=== PATIENT | female | born 1945 | race Hispanic/Latino ===

== ENCOUNTER 2018-08-26 17:51 | Inpatient (IN) | payer MEDICARE, BC ==
[2018-08-26 17:56] VITALS: BMI 26.5
--- NOTE | 2018-08-26 18:36 | CT ---
Date of service: 08/26/2018 PROCEDURE: CT HEAD WITHOUT CONTRAST. HISTORY: Code Stroke COMPARISON: None available. TECHNIQUE: Axial computed tomography images were obtained through the head/brain without intravenous contrast. Radiation dose: Total exam DLP = 919.58 mGy-cm. This CT exam was performed using one or more of the following dose reduction techniques: Automated exposure control, adjustment of the mA and/or kV according to patient size, and/or use of iterative reconstruction technique. FINDINGS: HEMORRHAGE: No acute parenchymal, subarachnoid or extra-axial hemorrhage. BRAIN: Moderate diffuse/confluent chronic white matter ischemic changes seen extending peripherally into the deep and subcortical white matter both cerebral hemispheres. Note that the possibility of a small hyperacute infarct cannot be completely excluded. Clinical correlation recommended.. There is ectasia of the vertebral and basilar arteries most pronounced at the level of the terminal and of the basilar artery which is somewhat bulbous in appearance. Additionally, similar ectatic appearance of the cavernous and supraclinoid carotid arteries as well as the proximal M1 segments again most pronounced at the bifurcation points. Moderate generalized volume loss. VENTRICLES: No obstructive hydrocephalus. CALVARIUM: No acute calvarial fractures. PARANASAL SINUSES: Unremarkable as visualized. No significant inflammatory changes. MASTOID AIR CELLS: Unremarkable as visualized. No inflammatory changes. OTHER FINDINGS: None. IMPRESSION: No acute intracranial hemorrhage. Chronic white matter and basal nuclei ischemic changes. 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 Note these findings were discussed with Dr. Padilla at approximately 6:28 p.m. with written down and read back verification.
[2018-08-26] MEDS: Sodium Chloride 0.9% 1,000 ML IV SCH (18:38)
[2018-08-26 18:47] LABS: BASO # 0.02 K/mm3 (0.0-2.0); BASO % 0.2 % (0.0-3.0); EOS # 0.2 (0.0-0.7); EOS % 2.3 % (1.5-5.0); HEMOGLOBIN 14.4 g/dL (12.0-16.0); LYMPH # 1.7 (1.2-3.4); LYMPH % 19.1 % (22.0-35.0); MEAN CELL VOLUME 84.5 fl (80.0-105.0); MEAN CORPUSCULAR HEMOGLOBIN 28.3 pg (25.0-35.0); MEAN CORPUSCULAR HGB CONC 33.5 g/dl (31.0-37.0); MONO # 0.5 (0.1-0.6); MONO % 5.7 % (1.0-6.0); RBC 5.09 10^6/uL (3.5-6.1); RED CELL DISTRIBUTION WIDTH 12.9 % (11.5-14.5); WHITE BLOOD COUNT 9.1 10^3/uL (4.5-11.0)
[2018-08-26 18:56] LABS: INR 1.07; PARTIAL THROMBOPLASTIN TIME 35.5 Seconds (26.9-38.3); PROTHROMBIN TIME 11.9 SECONDS (9.4-12.5)
[2018-08-26 19:00] LABS: ALB/GLOB RATIO 1.3 (1.1-1.8); ALBUMIN 4.4 g/dL (3.0-4.8); ALT/SGPT 57 U/L (7-56); AST/SGOT 34 U/L (14-36); BLOOD UREA NITROGEN 14 mg/dL (7-21); GFR NON-AFRICAN AMERICAN > 60; HDL CHOLESTEROL 51 mg/dL (29-60)
--- NOTE | 2018-08-26 19:03 | ED PDOC ---
Arrival/HPI - General Chief Complaint: High Blood Pressure Time Seen by Provider: 08/26/18 17:59 Historian: Patient, Family ( and daughter helped provide information) - History of Present Illness Narrative History of Present Illness (Text): 08/26/18 18:08 73 year old female, whose past medical history includes hypertension, partial hysterectomy, and UTI's, nkda, who was brought into the Emergency department by for disorientation since noon and high blood pressure. reports patient told him that she was not feeling good and was feeling lightheaded while heading home from volunteering earlier today. states the last time patient was normal was around 13:00 today, but started acting differently after that and was not able to answer which year it was or who the president was correctly. Patient was able to answer both questions correctly while in the Emergency department. Patient was not able to correctly answer her age or the month, noting that she cannot think properly and that she gets nervous whenever she is in the hospital. states he saw patient standing still and shaking while standing in kitchen. states he asked patient if she knew what she was doing and patient answered she did not know and also did not realize she made a sandwich while in kitchen. Patient states she is unsure if she took her medication for hypertension this afternoon, but states that patient did take it this afternoon. states patient took her Zostavax shot today. states patient's blood pressure is usually not this high, noting it is usually around 130. states patient last saw Dr. Reina last week. Patient denies any confusion, fever, chills, chest pain, shortness of breath, nausea, vomiting, diarrhea, urinary symptoms, back pain, neck pain, headache, di zziness, or any other complaints. PMD: DR. [employer] Lab Manager: Dr. Reina Time/Duration: Other (Pt notes onset as around 13:00 today ) Symptom Onset: Sudden Symptom Course: Unchanged Activities at Onset: Light Past Medical History - Provider Review Nursing Documentation Reviewed: Yes - Cardiac Hx Hypertension: Yes - Psychiatric Hx Substance Use: No - Anesthesia Hx Anesthesia: No Hx Anesthesia Reactions: No Hx Malignant Hyperthermia: No Family/Social History - Physician Review Nursing Documentation Reviewed: Yes Family/Social History: No Known Family HX Smoking Status: Never Smoked Hx Alcohol Use: No Hx Substance Use: No Allergies/Home Meds Allergies/Adverse Reactions: Allergies No Known Allergies Allergy (Verified 08/26/18 18:04) Review of Systems - Physician Review All systems were reviewed & negative as marked: Yes - Review of Systems Constitutional: Normal. absent: Fevers, Night Sweats Respiratory: Normal. absent: SOB Cardiovascular: Normal. absent: Chest Pain Gastrointestinal: Normal. absent: Abdominal Pain, Diarrhea, Nausea, Vomiting Musculoskeletal: absent: Back Pain, Neck Pain Neurological: Other ( notes patient has been disoriented since around 13:00 today. Pt noted lightheadedness earlier today. ). absent: Normal, Headache, Dizziness Physical Exam - Physical Exam Narrative Physical Exam (Text): Constitutional: No acute distress. Head: Normocephalic. Atraumatic. Eyes: PERRL. ENT: Moist mucous membranes. Neck: Supple. Cardiovascular: Regular rate. Chest: No tenderness. Respiratory: Clear to auscultation bilaterally. GI: Soft. Nontender. Nondistended. Back: No CVA tenderness. Musculoskeletal: No tenderness or swelling of extremities. Skin: No rash. Neurologic: Alert, no focal deficit. CN II to XII intact. Motor 5/5 x 4. Sensation to light touch intact. Vital Signs Reviewed: Yes Vital Signs Temp Pulse Resp BP Pulse Ox 08/26/18 17:56 98.1 F 84 18 186/98 H 96 Temperature: Afebrile Blood Pressure: Hypertensive Pulse: Regular Respiratory Rate: Normal Appearance: Positive for: Well-Appearing, Non-Toxic, Comfortable Pain Distress: None Mental Status: No: Alert and Oriented X 3 (Patient is alert and oriented x2 ) Medical Decision Making ED Course and Treatment: 08/26/18 18:08 Impression: 73 year old female who was brought into the Emergency department by for disorientation since noon and high blood pressure. Differential Diagnosis included but are not limited to: Plan: -- Labs -- CT of head w/o -- EKG -- X-Ray of chest -- Aspirin -- IV fluids -- Zofran -- Urine culture -- Urinalysis -- Reassess and disposition Progress Notes: EKG: Ordered, reviewed, and independently interpreted the EKG. Rate : 80 BPM Rhythm : NSR Interpretation : No ST-segment elevations or depressions, no T-wave inversions, normal intervals. CT Head no acute hemorrhage. Dr. Funk consulted, states will obtain MRI tomorrow. Dr. Lott accepts patient to her service. - Lab Interpretations Lab Results: PT 11.9 SECONDS (9.4-12.5) 08/26/18 18:41 INR 1.07 08/26/18 18:41 APTT 35.5 Seconds (26.9-38.3) 08/26/18 18:41 - RAD Interpretation Radiology Orders: 08/26/18 18:12 HEAD W/O (CODE STROKE) [CT] Stat CHEST PORTABLE [RAD] Stat - Medication Orders Current Medication Orders: Sodium Chloride (Sodium Chloride 0.9%) 1,000 mls @ 100 mls/hr IV .Q10H DRAGAN Last Admin: 08/26/18 18:38 Dose: 100 mls/hr eMAR Start Stop Document 08/26/18 18:38 ROCHELLE (Rec: 08/26/18 18:38 [facility] [id number]) Intravenous Solution Start Date 08/26/18 Start Time 18:38 Discontinued Medications Aspirin (Aspirin) 325 mg PO STAT STA Stop: 08/26/18 18:50 Ondansetron HCl (Zofran Inj) 4 mg IVP STAT STA Stop: 08/26/18 18:38 Last Admin: 08/26/18 18:40 Dose: 4 mg IVP Administration Document 08/26/18 18:40 ROCHELLE (Rec: 08/26/18 18:40 ROCHELLE [id number]) Charges for Administration # of IVP Administrations 1 NIHSS Scale ([place]) Time Performed: 18:00 - How Severe is the Stoke Baseline Level of Consciousness: 0=Alert LOC to Questions: 2=Neither correct LOC to commands: 0=Obeys both correctly Best Gaze: 0=Normal Visual: 0=No visual loss Facial: 0=Normal Motor Arm - Left: 0=No drift Motor Arm - Right: 0=No drift Motor Leg - Left: 0=No drift Motor Leg - Right: 0=No drift Limb Ataxia: 0=Absent Sensory: 0=Normal Best Language: 0=No aphasia Dysarthia: 0=Normal articulation Extinction & Inattention (Neglect): 0=Normal, no object Score: 2 Risk Level: Minor Stroke Risk rTPA Inclusion/Exclusion - Refusal of Treatment Patient Refused Treatment: No - Inclusion Criteria for Altepase Patient is 18 years or Older: Yes The Clinical Diagnosis of Ischemic Stroke That is Causing a Potentially Disabling Neurological Deficit: Yes Time of Onset is Well Established to be Less Than 270 Minute Before Treatment Would Begin: No Risk/Benefit Discussed With Patient/Family Member Present: Yes - Scribe Statement The provider has reviewed the documentation as recorded by the Scribe Michelle Quinones All medical record entries made by the Artemioibthierno were at my direction and personally dictated by me. I have reviewed the chart and agree that the record accurately reflects my personal performance of the history, physical exam, medical decision making, and the department course for this patient. I have also personally directed, reviewed, and agree with the discharge instructions and disposition. Disposition/Present on Arrival - Present on Arrival Any Indicators Present on Arrival: No History of DVT/PE: No History of Uncontrolled Diabetes: No Urinary Catheter: No History of Decub. Ulcer: No History Surgical Site Infection Following: None - Disposition Have Diagnosis and Disposition been Completed?: Yes Diagnosis: Altered mental status, UTI (urinary tract infection) Disposition: HOSPITALIZED Disposition Time: 20:45 Patient Plan: Admission, Telemetry Patient Problems: Current Active Problems Problem Status Onset Altered mental status Acute UTI (urinary tract infection) Acute Condition: GUARDED Forms: [facility] (Belgian)
[2018-08-26 19:11] LABS: LDL CHOLESTEROL 117 mg/dL (0-129); TROPONIN I < 0.01 ng/mL
[2018-08-26 20:23] LABS: URINE BILIRUBIN NEGATIVE (NEGATIVE); URINE BLOOD TRACE-INTACT (NEGATIVE); URINE GLUCOSE (UA) NEGATIVE (NEGATIVE); URINE LEUKOCYTE ESTERASE SMALL Leu/uL (NEGATIVE); URINE PROTEIN 30 mg/dL (<30 mg/dL); URINE UROBILINOGEN 0.2 E.U./dL (<1 E.U./dL)
[2018-08-26 20:27] LABS: URINE APPEARANCE SL CLOUDY (CLEAR); URINE COLOR YELLOW (YELLOW)
[2018-08-26 20:34] LABS: URINE BACTERIA MOD /hpf; URINE WBC 20 - 25 /hpf (0-6)
[2018-08-26] MEDS ORDERED: Ciprofloxacin 400mg/200ml D5W 400 MG/200 ML BAG IVPB STA (20:40)
--- NOTE | 2018-08-27 00:29 | HP ---
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 She states she was doing well up until afternoon when she came back from work. She was working in kitchen, but he noticed that she seems to be confused and disoriented. who was accompanying was asking that what she was doing, she stated I do not know; she does not recall that. She took her medication today. The patient does admit that she took Zostavax vaccination early this morning. No history of fever or chills. No history of nausea or vomiting. No history of fall. No trauma. No recent travel abroad. OTHER PAST MEDICAL HISTORY: Significant for: 1. Hypertension. 2. Hyperlipidemia. 3. History of partial hysterectomy. ALLERGIES: SHE IS NOT ALLERGIC TO ANY MEDICATIONS. MEDICATIONS AT HOME: She takes some blood pressure medication, cannot recall the name. SOCIAL HISTORY: She is , lives with her . Denies smoking, drinking, or alcohol use. PHYSICAL EXAMINATION: GENERAL: The patient is awake, alert, oriented, able to communicate, but somewhat confused. VITAL SIGNS: She is afebrile, pulse 84, respirations 18, blood pressure 186/98. LUNGS: Bilateral fair airflow. No rhonchi or crackle. HEART: S1 and S2 audible. ABDOMEN: Soft, nontender. No rebound. No guarding. NEUROLOGICAL: The patient is awake, alert, oriented, able to communicate, but somewhat forgetful, able to answer simple questions. LABORATORY EXAMINATION: WBC is 9.1, hemoglobin 14, hematocrit 43, platelets 276. PT 11.9, INR 1.07. Chemistry: Sodium 141, potassium 3.8, chloride 99, CO2 of 34, BUN 14, creatinine 0.6, blood sugar 122. LFTs are within normal limits. Urine shows 5-9 rbc's, wbc's 20-25. CT scan of the head was done that is unremarkable. X-ray chest is negative for pneumonia. ASSESSMENT: 1. Altered mental status. 2. Urinary tract infection and pyuria. 3. Uncontrolled hypertension. PLAN: The patient will be placed in observation. We will monitor her blood pressure. We will start her on losartan, start her on IV Rocephin until the cultures are back. Order for carotid Doppler. Request for physical therapy evaluation. Neuro eval has been requested. Rhett Lott MD
[2018-08-27 01:52] VITALS: O2SAT 95
[2018-08-27 07:54] LABS: ALB/GLOB RATIO 1.3 (1.1-1.8); ALBUMIN 3.8 g/dL (3.0-4.8); ALT/SGPT 44 U/L (7-56); AST/SGOT 28 U/L (14-36); BLOOD UREA NITROGEN 13 mg/dL (7-21); GFR NON-AFRICAN AMERICAN > 60
[2018-08-27 08:07] LABS: FREE T4 1.47 ng/dL (0.78-2.19)
--- NOTE | 2018-08-27 08:38 | RAD ---
Date of service: 08/26/2018 HISTORY: Code Stroke COMPARISON: No prior. FINDINGS: LUNGS: No active pulmonary disease. PLEURA: No significant pleural effusion identified, no pneumothorax apparent. CARDIOVASCULAR: No aortic atherosclerotic calcification present. Normal cardiac size. No pulmonary vascular congestion. OSSEOUS STRUCTURES: No significant abnormalities. VISUALIZED UPPER ABDOMEN: Normal. OTHER FINDINGS: None. IMPRESSION: No active disease.
[2018-08-27] MEDS ORDERED: cefTRIAXone 1 gm 1 GM/100 ML BAG IVPB SCH (10:00)
--- NOTE | 2018-08-27 11:25 | CARD ---
APPROVED REPORT Date of service: 08/26/2018 EKG Measurement Heart [id number] ID [id number] <Conclusion> Sinus rhythm with 1st degree AV block Otherwise normal ECG
--- NOTE | 2018-08-27 13:25 | CP.PCM.CON ---
<Julianne Choe - Last Filed: 08/27/18 13:52> History of Present Illness - History of Present Illness History of Present Illness: Neurology consult for Dr. Funk's service Consulted by Dr. Padilla 73 yo female with PMH of hypertension, partial hysterectomy, and UTI's, presented for disorientation and confusion. 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 He reports she was not able to answer questions correctly and forgot what she was doing previously. and daughter states that she had episodes of fixed gaze. Patient states that she did not recall anything abnormal occurring yesterday. Patient reports that she gets nervous whenever she is in the hospital. Per family and patient her blood pressure is usually controlled and around 130, however in the EMS is was 224. Morris aguilar denies any confusion, fever, chills, chest pain, shortness of breath, nausea, vomiting, diarrhea, urinary symptoms, back pain, neck pain, headache, dizziness, or any other complaints. 12 point ROS is negative except as stated. PMH: hypertension, HLD, and UTI's PSH: partial hysterectomy, thyroid ablation social history: Denies smoking, alcohol use, illicit drug use, lives with family history: cardiac disease, father past from brain aneusym allergy: NKDA Review of Systems - Review of Systems All systems: reviewed and no additional remarkable complaints except Past Patient History - Past Social History Smoking Status: Never Smoked - CARDIAC Hx Cardiac Disorders: Yes Hx Hypertension: Yes - PULMONARY Hx Respiratory Disorders: No - NEUROLOGICAL Hx Neurological Disorder: No - HEENT Hx HEENT Problems: No - RENAL Hx Chronic Kidney Disease: No - ENDOCRINE/METABOLIC Hx Endocrine Disorders: Yes (Thyroid Ablation 04/2018) Other/Comment: Thyroid Ablation 04/2018 - HEMATOLOGICAL/ONCOLOGICAL Hx Blood Disorders: No - INTEGUMENTARY Hx Dermatological Problems: No - MUSCULOSKELETAL/RHEUMATOLOGICAL Hx Musculoskeletal Disorders: No Hx Falls: No - GASTROINTESTINAL Hx Gastrointestinal Disorders: No - GENITOURINARY/GYNECOLOGICAL Hx Genitourinary Disorders: Yes Hx Urinary Tract Infection: Yes (Recurrent) - PSYCHIATRIC Hx Psychophysiologic Disorder: Yes Hx Anxiety: Yes Hx Substance Use: No - SURGICAL HISTORY Hx Surgeries: Yes Hx Hysterectomy: Yes (Partial) - ANESTHESIA Hx Anesthesia: No Hx Anesthesia Reactions: No Hx Malignant Hyperthermia: No Meds Allergies/Adverse Reactions: Allergies Allergy/AdvReac Type Severity Reaction Status Date / Time No Known Allergies Allergy Verified 08/26/18 18:04 - Medications Medications: Current Medications Acetaminophen (Tylenol 325mg Tab) 650 mg PO Q4H PRN PRN Reason: Headache Last Admin: 08/27/18 10:59 Dose: 650 mg Aspirin (Ecotrin) 81 mg PO DAILY [facility] Last Admin: 08/27/18 09:34 Dose: 81 mg Atorvastatin Calcium (Lipitor) 10 mg PO DIN DRAGAN Clonidine HCl (Catapres) 0.1 mg PO TID PRN PRN Reason: sbp>150 Sodium Chloride (Sodium Chloride 0.9%) 1,000 mls @ 100 mls/hr IV .Q10H [facility] Last Admin: 08/26/18 18:38 Dose: 100 mls/hr Ceftriaxone Sodium (Rocephin 1 Gram Ivpb) 1 gm in 100 mls @ 100 mls/hr IVPB DAILY [facility]; Protocol Last Admin: 08/27/18 09:34 Dose: 100 mls/hr Potassium Chloride (Potassium Chloride 10 Meq/100 Ml) 10 meq in 100 mls @ 50 mls/hr IVPB Q2H DRAGAN Stop: 08/27/18 13:44 Last Admin: 08/27/18 12:43 Dose: 50 mls/hr Lorazepam (Ativan) 1 mg IVP ONCE PRN; Protocol PRN Reason: Anxiety Losartan Potassium (Cozaar) 100 mg PO DAILY [facility] Last Admin: 08/27/18 09:34 Dose: 100 mg Physical Exam - Constitutional Appears: Well, No Acute Distress - Head Exam Head Exam: ATRAUMATIC, NORMAL INSPECTION, NORMOCEPHALIC - Eye Exam Eye Exam: EOMI, Normal appearance, PERRL Pupil Exam: NORMAL ACCOMODATION, PERRL - Respiratory Exam Respiratory Exam: NORMAL BREATHING PATTERN. absent: Respiratory Distress - Extremities Exam Extremities exam: Positive for: normal inspection. Negative for: tenderness - Expanded Neurological Exam Expanded Neurological exam: Inattentive (mild) Patient oriented to: person, place, time Cranial nerves: EOM's Intact: Normal, Facial Palsey w/Forehead Movement: Normal, Facial Palsey w/o Forehead Movement: Normal, Facial Sensation: Normal, Gag R eflex: Normal, Nystagmus: Normal, Tongue Deviation: Normal Cerebellar Function: Finger to Nose: Normal Upper motor neuron: Pronator Drift: Normal Neuro motor strength exam: Left Upper Extremity: 5, Right Upper Extremity: 5, L eft Lower Extremity: 5, Right Lower Extremity: 5 Coma Scale Eye Opening: SPONTANEOUS Coma Scale Motor Response: OBEYS COMMANDS - Psychiatric Exam Psychiatric exam: Anxious, Normal Affect Results - Vital Signs Recent Vital Signs: Last Vital Signs Temp 97.1 F L 08/27/18 12:00 Pulse 75 08/27/18 12:00 Resp 21 08/27/18 12:00 BP 144/65 08/27/18 12:00 Pulse Ox 95 08/27/18 00:30 - Labs Result Diagrams: 08/26/18 18:41 08/27/18 07:15 Labs: Laboratory Results - last 24 hr 08/26/18 08/26/18 08/26/18 18:29 18:41 18:41 WBC 9.1 RBC 5.09 Hgb 14.4 Hct 43.0 MCV 84.5 MCH 28.3 MCHC 33.5 RDW 12.9 Plt Count 276 MPV 10.0 Neut % (Auto) 72.7 H Lymph % (Auto) 19.1 L [place] % (Auto) 5.7 Eos % (Auto) 2.3 Baso % (Auto) 0.2 Lymph # (Auto) 1.7 [place] # (Auto) 0.5 Eos # (Auto) 0.2 Baso # (Auto) 0.02 Absolute Neuts (auto) 6.60 H PT 11.9 INR 1.07 APTT 35.5 Sodium Potassium Chloride Carbon Dioxide Anion Gap BUN Creatinine Est GFR ( Amer) Est GFR (Non-Af Amer) POC Glucose (mg/dL) 124 H Random Glucose Hemoglobin A1c Calcium Magnesium Total Bilirubin AST ALT Alkaline Phosphatase Troponin I Total Protein Albumin Globulin Albumin/Globulin Ratio Triglycerides Cholesterol LDL Cholesterol Direct HDL Cholesterol Free T4 TSH 3rd Generation Urine Color Urine Appearance Urine pH Ur Specific [place] Urine Protein Urine Glucose (UA) Urine Ketones Urine Blood Urine Nitrate Urine Bilirubin Urine Urobilinogen Ur Leukocyte Esterase Urine RBC Urine WBC Ur Epithelial Cells Urine Bacteria Blood Type Blood Type Confirm Antibody Screen BBK History Checked 08/26/18 08/26/18 08/26/18 18:41 18:41 19:13 WBC RBC Hgb Hct MCV MCH MCHC RDW Plt Count MPV Neut % (Auto) Lymph % (Auto) [place] % (Auto) Eos % (Auto) Baso % (Auto) Lymph # (Auto) [place] # (Auto) Eos # (Auto) Baso # (Auto) Absolute Neuts (auto) PT INR APTT Sodium 141 Potassium 3.8 Chloride 99 Carbon Dioxide 34 H Anion Gap 12 BUN 14 Creatinine 0.6 L Est GFR ( Amer) > 60 Est GFR (Non-Af Amer) > 60 POC Glucose (mg/dL) Random Glucose 122 H Hemoglobin A1c 6.1 Calcium 10.0 Magnesium Total Bilirubin 0.7 AST 34 ALT 57 H Alkaline Phosphatase 83 Troponin I < 0.01 Total Protein 7.8 Albumin 4.4 Globulin 3.4 Albumin/Globulin Ratio 1.3 Triglycerides 90 Cholesterol 191 LDL Cholesterol Direct 117 HDL Cholesterol 51 Free T4 TSH 3rd Generation Urine Color Urine Appearance Urine pH Ur Specific [place] Urine Protein Urine Glucose (UA) Urine Ketones Urine Blood Urine Nitrate Urine Bilirubin Urine Urobilinogen Ur Leukocyte Esterase Urine RBC Urine WBC Ur Epithelial Cells Urine Bacteria Blood Type B POSITIVE Blood Type Confirm Antibody Screen Negative BBK History Checked No verified bt 08/26/18 08/26/18 08/27/18 19:30 20:00 07:15 WBC RBC Hgb Hct MCV MCH MCHC RDW Plt Count MPV Neut % (Auto) Lymph % (Auto) [place] % (Auto) Eos % (Auto) Baso % (Auto) Lymph # (Auto) [place] # (Auto) Eos # (Auto) Baso # (Auto) Absolute Neuts (auto) PT INR APTT Sodium 140 Potassium 3.3 L Chloride 103 Carbon Dioxide 30 Anion Gap 9 L BUN 13 Creatinine 0.6 L Est GFR ( Amer) > 60 Est GFR (Non-Af Amer) > 60 POC Glucose (mg/dL) Random Glucose 138 H Hemoglobin A1c Calcium 9.0 Magnesium 1.6 L Total Bilirubin 1.0 AST 28 ALT 44 Alkaline Phosphatase 70 Troponin I Total Protein 6.7 Albumin 3.8 Globulin 3.0 Albumin/Globulin Ratio 1.3 Triglycerides Cholesterol LDL Cholesterol Direct HDL Cholesterol Free T4 TSH 3rd Generation Urine Color Yellow Urine Appearance Sl cloudy Urine pH 7.0 Ur Specific [place] 1.020 Urine Protein 30 H Urine Glucose (UA) Negative Urine Ketones Negative Urine Blood Trace-intact H Urine Nitrate Negative Urine Bilirubin Negative Urine Urobilinogen 0.2 Ur Leukocyte Esterase Small H Urine RBC 5 - 10 H Urine WBC 20 - 25 H Ur Epithelial Cells 4 - 5 Urine Bacteria Mod Blood Type Blood Type Confirm B POSITIVE Antibody Screen BBK History Checked 08/27/18 08/27/18 07:15 07:15 WBC RBC Hgb Hct MCV MCH MCHC RDW Plt Count MPV Neut % (Auto) Lymph % (Auto) [place] % (Auto) Eos % (Auto) Baso % (Auto) Lymph # (Auto) [place] # (Auto) Eos # (Auto) Baso # (Auto) Absolute Neuts (auto) PT INR APTT Sodium Potassium Chloride Carbon Dioxide Anion Gap BUN Creatinine Est GFR ( Amer) Est GFR (Non-Af Amer) POC Glucose (mg/dL) Random Glucose Hemoglobin A1c 6.1 Calcium Magnesium Total Bilirubin AST ALT Alkaline Phosphatase Troponin I Total Protein Albumin Globulin Albumin/Globulin Ratio Triglycerides Cholesterol LDL Cholesterol Direct HDL Cholesterol Free T4 1.47 TSH 3rd Generation 2.30 Urine Color Urine Appearance Urine pH Ur Specific [place] Urine Protein Urine Glucose (UA) Urine Ketones Urine Blood Urine Nitrate Urine Bilirubin Urine Urobilinogen Ur Leukocyte Esterase Urine RBC Urine WBC Ur Epithelial Cells Urine Bacteria Blood Type Blood Type Confirm Antibody Screen BBK History Checked Assessment & Plan - Assessment and Plan (Free Text) Assessment: 73 yo female with PMH of hypertension, partial hysterectomy, and UTI's, presented for disorientation and episodes of fixed gaze, will need to rule out seizure vs HTN encephalopathy. Plan: - CT head showed no acute findings, chronic white matter and basal nuclei changes - Will order MRI, patient can be given 1mg ativan prior due to her anxiety - Will also get EEG - follow up carotid US - Continue to control blood pressure - Control risk factors - further recommendation by Dr. Funk Case seen and discussed with Dr. Funk <Vj Funk - Last Filed: 08/31/18 02:11> Results - Vital Signs Recent Vital Signs: Last Vital Signs Temp 97.1 F L 08/28/18 12:00 Pulse 60 08/28/18 13:58 Resp 20 08/28/18 06:00 BP 128/62 08/28/18 13:58 Pulse Ox 95 08/28/18 00:01 - Labs Result Diagrams: 08/26/18 18:41 08/27/18 07:15 Attending/Attestation - Attestation I have personally seen and examined this patient.: Yes I have fully participated in the care of the patient.: Yes I have reviewed all pertinent clinical information: Yes Notes (Text): I agree with the assessment and plan. Hypertensive encephalopathy and possible seizures: - Will order MRI, patient can be given 1mg ativan prior due to her anxiety - Will also get EEG - follow up carotid US - Continue to control blood pressure - Control risk factors
[2018-08-27] MEDS: Sodium Chloride 0.9% 1,000 ML IV SCH ×2 (17:50)
--- NOTE | 2018-08-28 03:32 | DS ---
SUBJECTIVE: The patient is a 73-year-old, seen and examined, doing much better, fully awake, alert, oriented, communicative, answering appropriately. PHYSICAL EXAMINATION: VITAL SIGNS: She is afebrile, pulse 65, respirations 20, blood pressure 147/81. LUNGS: Bilateral good airflow. No rhonchi or crackle. HEART: S1 and S2 audible. ABDOMEN: Soft, nontender. No rebound. No guarding. NEUROLOGICAL: The patient is awake, alert, oriented, communicative, nonfocal. No motor or sensory deficit. LABORATORY EXAMINATION: Sodium 140, potassium 3.3, chloride 103, CO2 of 30, BUN 13, creatinine 0.6, blood sugar of 138. Magnesium 1.6. Urine cultures are pending. Carotid Doppler is pending. MRI is pending. ASSESSMENT: 1. Status post altered mental status, probably hypertensive encephalopathy along with urinary tract infection. 2. History of hypertension. 3. Hyperlipidemia. 4. History of hyperthyroidism, had radioactive iodine treatment given in 03/2018, according to daughter, Yaneth, who was by the bedside and since then, she has been monitored by hand woodworking sander, Dr. Reina in [facility]. PLAN: We will continue the patient on IV antibiotics, follow up urine culture, follow up carotid Doppler and MRI of the brain. We will follow up the patient in a.m. Rhett Lott MD
[2018-08-28] MEDS ORDERED: Pantoprazole 40 mg EC Tab PO SCH (06:00)
--- NOTE | 2018-08-28 08:30 | CP.PCM.PN ---
<Jose Almazan - Last Filed: 08/28/18 14:24> Subjective - Date & Time of Evaluation Date of Evaluation: 08/28/18 Time of Evaluation: 08:28 - Subjective Subjective: Neurology Progress Note: Patient seen and assessed at bedside. No acute events noted overnight. Patient reports that she was walking around the floor with her daughter present. She denies any complaints and further 12 point ROS unremarkable at this time. Objective - Vital Signs/Intake and Output Vital Signs (last 24 hours): Temp Pulse Resp BP Pulse Ox 97.9 F 83 20 176/78 H 95 08/28/18 06:00 08/28/18 06:00 08/28/18 06:00 08/28/18 06:00 08/28/18 00:01 Intake and Output: 08/28/18 08/28/18 06:59 18:59 Intake Total 120 Balance 120 - Medications Medications: Current Medications Acetaminophen (Tylenol 325mg Tab) 650 mg PO Q4H PRN PRN Reason: Headache Last Admin: 08/27/18 10:59 Dose: 650 mg Aspirin (Ecotrin) 81 mg PO DAILY [facility] Last Admin: 08/27/18 09:34 Dose: 81 mg Atorvastatin Calcium (Lipitor) 10 mg PO DIN [facility] Last Admin: 08/27/18 17:50 Dose: 10 mg Clonidine HCl (Catapres) 0.1 mg PO TID PRN PRN Reason: sbp>150 Cyanocobalamin (Vitamin B12 1000 Mcg Tab) 1,000 mcg PO DAILY [facility] Escitalopram Oxalate (Lexapro) 20 mg PO DAILY [facility] Sodium Chloride (Sodium Chloride 0.9%) 1,000 mls @ 100 mls/hr IV .Q10H [facility] Last Admin: 08/27/18 17:50 Dose: 100 mls/hr Ceftriaxone Sodium (Rocephin 1 Gram Ivpb) 1 gm in 100 mls @ 100 mls/hr IVPB DAILY [facility]; Protocol Last Admin: 08/27/18 09:34 Dose: 100 mls/hr Lorazepam (Ativan) 1 mg IVP ONCE PRN; Protocol PRN Reason: Anxiety Last Admin: 08/27/18 21:14 Dose: 1 mg Losartan Potassium (Cozaar) 100 mg PO DAILY [facility] Last Admin: 08/27/18 09:34 Dose: 100 mg Pantoprazole Sodium (Protonix Ec Tab) 40 mg PO 0600 [facility] Last Admin: 08/28/18 05:35 Dose: 40 mg Zolpidem Tartrate (Ambien) 5 mg PO HS PRN; Protocol PRN Reason: Insomnia - Labs Labs: 08/26/18 18:41 08/27/18 07:15 PT 11.9 SECONDS (9.4-12.5) 08/26/18 18:41 INR 1.07 08/26/18 18:41 APTT 35.5 Seconds (26.9-38.3) 08/26/18 18:41 - Constitutional Appears: Non-toxic, No Acute Distress - Head Exam Head Exam: ATRAUMATIC, NORMOCEPHALIC - Eye Exam Eye Exam: EOMI, Normal appearance, PERRL. absent: Conjunctival injection, Nystagmus, Periorbital swelling, Periorbital tenderness, Scleral icterus Pupil Exam: NORMAL ACCOMODATION, PERRL - ENT Exam ENT Exam: Mucous Membranes Moist - Neck Exam Neck Exam: Full ROM - Respiratory Exam Respiratory Exam: Clear to Ausculation Bilateral, NORMAL BREATHING PATTERN - Cardiovascular Exam Cardiovascular Exam: REGULAR RHYTHM - GI/Abdominal Exam GI & Abdominal Exam: Soft, Normal Bowel Sounds. absent: Tenderness - Neurological Exam Neurological Exam: Alert, Awake, CN II-XII Intact, Normal Gait, Oriented x3 Neuro motor strength exam: Left Upper Extremity: 5, Right Upper Extremity: 5, Left Lower Extremity: 5, Right Lower Extremity: 5 Additional comments: Expanded Patient oriented to: person, place, time Cranial nerves: EOM's Intact: Normal, Facial Palsey w/Forehead Movement: Normal, Facial Palsey w/o Forehead Movement: Normal, Facial Sensation: Normal, Gag Reflex: Normal, Nystagmus: Normal, Tongue Deviation: Normal Cerebellar Function: Finger to Nose: Normal Upper motor neuron: Pronator Drift: Normal Coma Scale Eye Opening: SPONTANEOUS Coma Scale Motor Response: OBEYS COMMANDS Memory: 2/3 items recalled - Psychiatric Exam Psychiatric exam: Normal Affect, Normal Mood - Skin Skin Exam: Dry, Warm Assessment and Plan - Assessment and Plan (Free Text) Assessment: 73 year old female with a past medical history significant for HTN, partial hysterectomy, and UTI's who presented with episodic disorientation and fixed gaze. Plan: -MRI Brain (08/27) showed no acute findings and again noted chronic white matter and basal nuclei ischemic changes -CT Head (08/27) showed no acute findings and chronic white matter and basal nuclei ischemic changes -EEG showed no abnormalities -Continue blood pressure management as per Primary Team -Maintain euglycemia, normothermia and normotension -Further recommendations as per Dr. Funk Disposition: No further neurological interventions/imaging warranted at this time. Patients presentation is most consistent with TGA, given the findings of our workup. From a neurological perspective, patient optimized for discharge. Patient seen and case discussed with Dr. Funk. Jose Almazan PGY2 <Vj Funk - Last Filed: 08/31/18 01:47> Objective - Vital Signs/Intake and Output Vital Signs (last 24 hours): Temp Pulse Resp BP Pulse Ox 97.1 F L 60 20 128/62 95 08/28/18 12:00 08/28/18 13:58 08/28/18 06:00 08/28/18 13:58 08/28/18 00:01 - Labs Labs: 08/26/18 18:41 08/27/18 07:15 PT 11.9 SECONDS (9.4-12.5) 08/26/18 18:41 INR 1.07 08/26/18 18:41 APTT 35.5 Seconds (26.9-38.3) 08/26/18 18:41 Attending/Attestation - Attestation I have personally seen and examined this patient.: Yes I have fully participated in the care of the patient.: Yes I have reviewed all pertinent clinical information, including history, physical exam and plan: Yes Notes (Text): I agree with the assessment and plan: -Continue blood pressure management as per Primary Team -Maintain euglycemia, normothermia and normotension
--- NOTE | 2018-08-28 09:05 | MRI ---
Date of service: 08/27/2018 PROCEDURE: MRI BRAIN WITHOUT CONTRAST HISTORY: Rule out structural abnormality COMPARISON: Comparison made with prior CT scan brain 08/26/2018 at 18:18 hours. TECHNIQUE: Multiplanar, multisequence MR images of the brain were obtained without intravenous contrast enhancement. FINDINGS: . This examination is limited by motion artifact HEMORRHAGE: No acute parenchymal, subarachnoid nor extra-axial hemorrhage. No evidence of hemosiderin deposition is identified on gradient echo weighted sequence. DWI: No evidence of an acute or early subacute infarction seen on diffusion imaging. BRAIN PARENCHYMA: Mild chronic periventricular white matter ischemic changes seen extending peripherally into the deep and to a lesser degree subcortical white matter both cerebral hemispheres. Additionally, there are multiple more discrete chronic infarcts scattered about the deep and subcortical white matter as well as both basal nuclei. Additionally, subtle chronic brainstem ischemic changes are also felt to be present. None of these changes exhibit restricted diffusion. Moderate generalized volume loss. VENTRICLES: No obstructive hydrocephalus. CRANIUM: Unremarkable. ORBITS: The orbits and contents grossly unremarkable so far as can be seen. PARANASAL SINUSES/MASTOIDS: Clear VASCULAR SYSTEM: Visualized major vascular flow voids at skull base patent. Skull base flow voids intact. OTHER FINDINGS: None. IMPRESSION: Limited motion degraded study. No acute intracranial hemorrhage or infarction. Mild chronic white matter, basal nuclei and lesser brainstem ischemic changes Moderate generalized volume loss
[2018-08-28] MEDS ORDERED: Metoprolol Succinate 50 mg XL Tab PO SCH (09:45)
[2018-08-28] MEDS ORDERED: Cefpodoxime (Vantin) 200 mg Tab PO SCH (10:00)
[2018-08-28] MEDS: Sodium Chloride 0.9% 1,000 ML IV SCH (10:02)
--- NOTE | 2018-08-28 10:34 | CP.PCM.APN ---
Subjective - Date & Time of Evaluation Date of Evaluation: 08/28/18 Time of Evaluation: 10:22 - Subjective Subjective: pt seen and examined at bedside with family and resident present ,pt in NAD pt sitting up in chair , alert and awake Review of Systems - Review of Systems All systems: reviewed and no additional remarkable complaints except Objective - Vital Signs/Intake and Output Vital Signs (last 24 hours): Temp Pulse Resp BP Pulse Ox 97.9 F 80 20 151/89 H 95 08/28/18 06:00 08/28/18 10:04 08/28/18 06:00 08/28/18 10:04 08/28/18 00:01 Intake and Output: 08/28/18 08/28/18 06:59 18:59 Intake Total 120 Balance 120 - Medications Medications: Current Medications Acetaminophen (Tylenol 325mg Tab) 650 mg PO Q4H PRN PRN Reason: Headache Last Admin: 08/27/18 10:59 Dose: 650 mg Aspirin (Ecotrin) 81 mg PO DAILY [facility] Last Admin: 08/28/18 10:04 Dose: 81 mg Atorvastatin Calcium (Lipitor) 10 mg PO DIN [facility] Last Admin: 08/27/18 17:50 Dose: 10 mg Cefpodoxime Proxetil (Vantin) 200 mg PO Q12 [facility] Last Admin: 08/28/18 10:03 Dose: 200 mg Clonidine HCl (Catapres) 0.1 mg PO TID PRN PRN Reason: sbp>150 Last Admin: 08/28/18 08:38 Dose: 0.1 mg Cyanocobalamin (Vitamin B12 1000 Mcg Tab) 1,000 mcg PO DAILY [facility] Last Admin: 08/28/18 10:04 Dose: 1,000 mcg Escitalopram Oxalate (Lexapro) 20 mg PO DAILY [facility] Last Admin: 08/28/18 10:04 Dose: 20 mg Sodium Chloride (Sodium Chloride 0.9%) 1,000 mls @ 100 mls/hr IV .Q10H [facility] Last Admin: 08/28/18 10:02 Dose: 100 mls/hr Lorazepam (Ativan) 1 mg IVP ONCE PRN; Protocol PRN Reason: Anxiety Last Admin: 08/27/18 21:14 Dose: 1 mg Losartan Potassium (Cozaar) 100 mg PO DAILY [facility] Last Admin: 08/28/18 10:04 Dose: 100 mg Metoprolol Succinate (Toprol Xl) 50 mg PO BRK [facility] Last Admin: 08/28/18 10:04 Dose: 50 mg Pantoprazole Sodium (Protonix Ec Tab) 40 mg PO 0600 [facility] Last Admin: 08/28/18 05:35 Dose: 40 mg Zolpidem Tartrate (Ambien) 5 mg PO HS PRN; Protocol PRN Reason: Insomnia - Labs Labs: 08/26/18 18:41 08/27/18 07:15 PT 11.9 SECONDS (9.4-12.5) 08/26/18 18:41 INR 1.07 08/26/18 18:41 APTT 35.5 Seconds (26.9-38.3) 08/26/18 18:41 - Constitutional Appears: Non-toxic, No Acute Distress - Eye Exam Eye Exam: Normal appearance Pupil Exam: NORMAL ACCOMODATION - ENT Exam ENT Exam: Normal Exam - Cardiovascular Exam Cardiovascular Exam: +S1, +S2 - GI/Abdominal Exam GI & Abdominal Exam: Soft, Normal Bowel Sounds - Neurological Exam Neurological Exam: Alert, Awake - Psychiatric Exam Psychiatric exam: Normal Mood - Skin Skin Exam: Dry, Intact Assessment and Plan - Assessment and Plan (Free Text) Plan: ITS Impressions Chest X-Ray 08/26/18 18:12 IMPRESSION: No active disease. Head CT 08/26/18 18:12 IMPRESSION: No acute intracranial hemorrhage. Chronic white matter and basal nuclei ischemic changes. 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 Note these findings were discussed with Dr. Padilla at approximately 6:28 p.m. with written down and read back verification. Brain MRI 08/27/18 12:03 IMPRESSION: Limited motion degraded study. No acute intracranial hemorrhage or infarction. Mild chronic white matter, basal nuclei and lesser brainstem ischemic changes Moderate generalized volume loss 73 yr old female with pmh sig for hypertension, partial hysterectomy, and UTI's brought in by for AMS found to have UTI with gm positive cocci now for further mgmt with neuro consultation and workup in progress AMS resolving head ct negative, EEG done- results pending mri negative will followup with neuro recs carotid US done but not read, vasc called for reading. UTI resolving , no fever or leukocytosis pt on pO vantin htn present mgmt with BB therapy will discuss plan with pmd sudeep Do BPCI/TIC - BPCIA/TIC Educated pt/family on BPCIA/CIR/Med to Bed Programs: Yes Flyers given, including CMS Beneficiary letter: Yes Pt/family verbalized understanding & agreed to program: Yes
--- NOTE | 2018-08-28 11:41 | PCM.EEG ---
Electroencephalogram Report - Electroencephalogram Report Procedure Date: 08/27/18 Medication: Lipitor, Clonidine, Losartan Interpretation: Technical Information: This was a 16 -channel EEG, 1-channel EKG routine EEG performed using an Nephera machine. Electrodes were applied using the 10/20 international placement system. Start; 14;44 End 15;33 Total 47 min Indication; Alter mental status During resting wakefulness there was a symmetric posterior dominant rhythm at 8.5-9.5 Hz, 30-50 uV, which was reactive to eye opening and closing. Drowsiness seen at 15;04 was associated with fragmentation of the posterior dominant rhythm and with slow roving eye movements. Sleep not seen. Hyperventilation was not performed. Photic stimulation was performed and there were no changes on the record. Focal abnormality; none ECG was associated with a normal sinus rhythm. Impression: This is a normal awake and drowsy electroencephalogram.
[2018-08-28 18:41] VITALS: BP 128/62; PULSE 60; RESP 20; TEMP 97.1
--- NOTE | 2018-08-28 21:11 | US ---
PROCEDURE: Bilateral carotid artery duplex ultrasound HISTORY: Carotid stenosis syncope PHYSICIAN(S): Markell Crawford MD. TECHNIQUE: Duplex sonography and color-flow Doppler were used to evaluate the carotid bifurcations and limited segments of the vertebral arteries bilaterally. The exam is somewhat limited by tortuous vessels FINDINGS: There is mild smooth hypoechoic plaque noted at the carotid bifurcations bilaterally. The peak systolic velocity in the proximal right internal carotid artery is 93 cm/sec. This corresponds to a 20 to 39% proximal right ICA stenosis. Normal systolic velocities are noted in the proximal right external carotid artery. There is antegrade flow in the right vertebral artery. The peak systolic velocity in the proximal left internal carotid artery is 98 cm/sec. This corresponds to a 20 to 39% proximal left ICA stenosis. Normal systolic velocities are noted in the proximal left external carotid artery. There is antegrade flow in the left vertebral artery. IMPRESSION: 1. Bilateral 20-39% proximal ICA stenoses. 2. Antegrade flow in both vertebral arteries.
--- NOTE | 2018-08-29 04:12 | DS ---
HISTORY OF PRESENT ILLNESS: The patient is a 73-year-old, seen and examined, doing well, fully awake, alert, oriented, and ambulatory. No chest pain. No shortness of breath. No nausea or vomiting. No diarrhea. Eating and tolerating. PHYSICAL EXAMINATION: VITAL SIGNS: She is afebrile, pulse 82, respirations 20, and blood pressure 151/89. LUNGS: Bilateral fair airflow. No rhonchi or crackle. HEART: S1 and S2 audible. ABDOMEN: Soft and nontender. No rebound. No guarding. NEUROLOGIC: The patient is awake, alert, oriented, able to communicate, and ambulatory. LABORATORY DATA: No new is available today. Urinalysis shows Gram-positive cocci, culture to follow. She has MRI of the brain done, that is unremarkable. ASSESSMENT: 1. Probably hypertensive encephalopathy. There is mild chronic white matter basal nuclei and brainstem ischemic changes. 2. History of depression. 3. Insomnia. 4. She also had electroencephalogram done, there is normal awake, and drowsy electroencephalogram. PLAN: The patient will be discharged home. She will resume her medications including Lexapro including losartan 100 mg daily and metoprolol 50 mg twice a day. She is given prescription of Norvasc if her blood pressure is above 150, she should take 5 mg of Norvasc. She is also given Ambien 5 mg as needed. She will follow up with [facility] as outpatient. She will follow with her PMD also. Rhett Lott MD
== END 2018-08-28 18:42 | disposition home or self-care (01) | DRG 78 ==
LOC: ED 17:51 → ERH 20:47 → 2RNO 08-27 00:04
PROVIDERS: ADMIT Internal Medicine; ATTEND Internal Medicine
DX: I67.4 Hypertensive encephalopathy (principal); N39.0 Urinary tract infection, site not specified; G47.00 Insomnia, unspecified; E78.5 Hyperlipidemia, unspecified; I10 Essential (primary) hypertension; Z87.440 Personal history of urinary (tract) infections; Z90.711 Acquired absence of uterus with remaining cervical stump